=== PATIENT | male | born 1935 | race Caucasian/White ===

== ENCOUNTER 2016-10-28 11:58 | Day surgery (SDC) | payer MEDICARE, OTHER ==
[~2016-10-28 11:58] MED LIST: Acetaminophen TAB* 325 MG PO PRN; Buffered Lidocaine 1% SYRIN* 3 ML/SYR SYRINGE INTRADERM ONE
[2016-10-28] MEDS ORDERED: Phenylephrine 2.5% OPTH.SOL* 2 ML BTL ONE (13:15)
[2016-10-28] MEDS ORDERED: Lidocaine 1% MPF* 2 ML VIAL ONE (13:15)
[2016-10-28] MEDS ORDERED: Povidone Iodine 5% OPTH* 30 ML BTL ONE (13:15)
[2016-10-28] MEDS ORDERED: Tropicamide 1% OPTH.SOL* BTL ONE (13:15)
[2016-10-28] MEDS ORDERED: Flurbiprofen 0.03% OPTH.SOL* 2.5 ML BTL ONE (13:15)
[2016-10-28] MEDS ORDERED: Tetracaine 0.5% OPTH.SOL 4 ML* 1 DROP BTL ONE (13:15)
[2016-10-28] MEDS ORDERED: Cyclopentolate 1% OPTH.SOL* 2 ML BTL ONE (13:15)
[2016-10-28] MEDS ORDERED: Neomycin/Polymy/Dex OPHTH.OIN* 3.5 GM ONE (13:15)
[2016-10-28] MEDS ORDERED: Midazolam* 1 MG/ML 2 ML VIAL (2 MG) ONE (13:18)
[2016-10-28 14:12] VITALS: BP 131/81
--- NOTE | 2016-10-29 01:57 | OP ---
DATE OF OPERATION: 10/28/16 - [facility] DATE OF : 39 SURGEON: Dr. Jim Johnson. GUEST EXPERIENCE SPECIALIST: None. ANESTHESIOLOGIST: Iris Kessler MD ANESTHESIA: Topical with intravenous sedation. PRE-OP DIAGNOSIS: Cataract, right eye. POST-OP DIAGNOSIS: Cataract, right eye. OPERATIVE PROCEDURE: Phacoemulsification and cataract extraction with posterior chamber intraocular lens implant, right eye. COMPLICATIONS: None. BLOOD LOSS: None. DESCRIPTION OF PROCEDURE: The patient was brought to the operating room and received a small amount of intra-venous sedation. A drop of Tetracaine was placed in his right eye. He was prepped and draped in the usual sterile fashion for ophthalmic surgery and attention was directed to the right eye where a speculum was placed. A paracentesis was created at the 11 o'clock position and 0.1 cc of 1 percent preservative-free Lidocaine was injected into the anterior chamber followed by DisCoVisc. The eye was digitally stabilized while a 2.75 mm keratome was used to create a triplanar clear corneal incision at the 9 o'clock position. A continuous curvilinear capsulorrhexis was created with a cystotome and Utrata forceps. BSS on a cannula was used to hydrodissect the lens from the capsule. Phacoemulsification was performed in a divide-and- conquer technique to create four fragments which were removed. Residual cortical material was removed with irrigation and aspiration. DisCoVisc was used to inflate the capsular bag and an AU00T0 19.0 Diopter lens was folded and inserted into the capsular bag. DisCoVisc was removed using irrigation and aspiration. BSS on a cannula was used to hydrate the corneal stroma and seal the wound. At the end of the case the pupil was round and the lens was centered. The eye was of normal pressure and the wound was water tight. The speculum was removed and topical Maxitrol ointment was placed on the surface of the eye. The eye was closed, patched and shielded and the patient was sent to the recovery room in stable condition with post operative instructions and follow-up appointment given. [id number]/CPS #: [id number] MTDD
== END 2016-10-28 14:20 | disposition home or self-care (01) ==
LOC: OREAST 11:58
PROVIDERS: ATTEND Ophthalmology
DX: H25.11 Age-related nuclear cataract, right eye (principal); Z86.718 Personal history of other venous thrombosis and embolism; Z79.01 Long term (current) use of anticoagulants; Z85.46 Personal history of malignant neoplasm of prostate; E03.9 Hypothyroidism, unspecified; Z85.118 Personal history of other malignant neoplasm of bronchus and lung
CPT/HCPCS: A9270-GY; J2250; V2632

== ENCOUNTER 2017-06-19 14:48 | Emergency (ER) | payer MEDICARE, OTHER ==
[2017-06-19] MEDS ORDERED: Meclizine TAB* 12.5 MG PO ONE (15:18)
[2017-06-19 15:52] LABS: Hematocrit 41 % (42-52); Hemoglobin 13.6 g/dl (14.0-18.0); Mean Corpuscular HGB Conc 34 g/dl (31-36); Mean Corpuscular Hemoglobin 31 pg (27-31); Mean Corpuscular Volume 92 fL (80-94); Mean Platelet Volume 9 um3 (7.4-10.4); Red Blood Count 4.38 10^6/ul (4.0-5.4); Red Cell Distribution Width 14 % (10.5-15); White Blood Count 5.7 10^3/ul (3.5-10.8)
--- NOTE | 2017-06-19 15:56 | RAD ---
INDICATION: Vertigo. Secondary malignant neoplasm of the brain COMPARISON: MRI brain April 28, 2017 TECHNIQUE: Noncontrast axial source images were acquired from the skull base to the vertex. FINDINGS: Ventricles/sulci: The ventricles and cisterns are normal in size and configuration for age. There is mild age-related atrophy Brain parenchyma: There is right frontal encephalomalacia, unchanged. There is no acute focal parenchymal finding, evidence of intracranial mass, or intracranial mass effect. Intracranial hemorrhage:None. Extra-axial spaces: There are no abnormal extra axial fluid collections or evidence of extra-axial mass. Calvarium: There is no calvarial fracture or other calvarial abnormality. Scalp: There is no evidence of scalp or extracalvarial soft tissue abnormality. Paranasal sinuses/mastoid: The paranasal sinuses and mastoid air cells are clear. Other: None. IMPRESSION: Right frontal encephalomalacia, unchanged. No acute CT findings
[2017-06-19 16:08] LABS: Albumin 4.3 g/dL (3.2-5.2); BUN/Creatinine Ratio 14.4 (8-20); Calcium 9.3 mg/dL (8.6-10.3); EGFR African American 88.6 (>60); EGFR Non-African American 68.9 (>60); Globulin 2.8 g/dL (2-4); Total Bilirubin 0.8 mg/dL (0.2-1.0); Total Protein 7.1 g/dL (6.4-8.9)
--- NOTE | 2017-06-19 17:20 | RAD ---
INDICATION: Weakness COMPARISON: MRI brain April 28, 2017; CT brain June 19, 2017 TECHNIQUE: sagittal T1 FLAIR, axial diffusion, axial T1 FLAIR, axial T2, axial T2 FLAIR, and SWI images were acquired. FINDINGS: Craniocervical junction: The craniocervical junction appears normal. Ventricles/sulci: The ventricles and cisterns are normal in size and configuration for age. Brain parenchyma: There is again right frontal encephalomalacia with adjacent sclerosis, unchanged there are no acute focal parenchymal abnormalities. There is no evidence of intracranial mass or mass effect. The diffusion weighted images show no evidence of acute ischemia. Intracranial hemorrhage: There is no intracranial hemorrhage. Extra-axial spaces: There are no extra-axial fluid collections or masses. Orbits: There are no MR abnormalities of the orbital structures. Paranasal sinuses/mastoid: There is a mucous retention cyst or polyp in the left maxillary antrum measuring 1.9 cm, unchanged The paranasal sinuses are clear. The mastoid air cells are well aerated.. Vascular: No abnormalities are seen. Other: None IMPRESSION: 1. Stable encephalomalacic change right frontal lobe. 2. No MR findings of restricted diffusion to suggest acute ischemia. 3. Left maxillary antral sinusitis, unchanged
[2017-06-19 18:20] VITALS: BP 132/100
--- NOTE | 2017-06-22 19:48 | ED ---
Rodolfo Qiu Natalie, scribed for Demetrius Cooley MD on 06/19/17 at 1523 . Dizziness - HPI Summary HPI Summary: The pt is a 81 y/o M presenting to the ED c/o dizziness and nausea starting last night and lasted for 2 hours. After waking up this morning, he felt alright , but felt dizzy and nauseous again at 11:00. The dizziness is described as spinning. The pain is aggravated by head movement and is alleviated by lying down. Pt additionally c/o vomiting, congestion, unsteadiness with ambulation. Pt denies headache and tinnitus. He has had 4 similar episodes over the past few months. Pt has hx of noncancerous brain tumor. - History Of Current Complaint Chief Complaint: EDDizziness Stated Complaint: DIZZY Time Seen by Provider: 06/19/17 14:56 Hx Obtained From: Patient Onset/Duration: Still Present, Suddenly - started last night Severity Initially: Moderate Severity Currently: Moderate Character: Room Spinning, Dizzy Aggravating Factor(s): Change In Head Position Alleviating Factor(s): Lying Down Associated Signs And Symptoms: Positive: Nausea, Vomiting, Unsteady Gait, Other : - POSITIVE: congestion; NEGATIVE: headache. Negative: Tinnitus - Allergies/Home Medications Allergies/Adverse Reactions: Allergies Allergy/AdvReac Type Severity Reaction Status Date / Time No Known Allergies Allergy Verified 04/06/17 15:37 PMH/Surg Hx/FS Hx/Imm Hx Previously Healthy: No Endocrine/Hematology History: Reports: Hx Thyroid Disease - hypothyroididm` Denies: Hx Diabetes Cardiovascular History: Denies: Hx Congestive Heart Failure, Hx Hypertension, Hx Pacemaker/ICD Respiratory History: Denies: Other Respiratory Problems/Disorders GI History: Denies: Other GI Disorders History: Reports: Hx Renal Disease, Other Problems/Disorders - one kidney removed Musculoskeletal History: Reports: Hx Arthritis Denies: Hx Osteoporosis Sensory History: Reports: Hx Cataracts - lexii, Hx Contacts or Glasses, Hx Hearing Aid, Hx Hearing Problem Opthamlomology History: Reports: Hx Cataracts - lexii, Hx Contacts or Glasses Neurological History: Reports: Other Neuro Impairments/Disorders - neuropathy Psychiatric History: Denies: Hx Panic Disorder - Cancer History Cancer Type, 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 [place]- AND Rt PARTIAL NEPHRECTOMY. LUNG SURGERY AND SPINAL SURGERY W/ RODS IN [facility]-. KERATOSIS REMOVED FROM FOREHEAD. appendectomy as child -. [facility] [place] BRAIN TUMOR REMOVAL, AUG 21, 2015. BILATERAL CATARACT SURGERY 11/2016. 2 LAMINECTOMYS IN TSP. GAMMA KNIFE RADIATION -09/25/15 Hx Anesthesia Reactions: No Infectious Disease History: No Infectious Disease History: Denies: Traveled Outside the [place] in Last 30 Days - Family History Known Family History: Negative: Cardiac Disease, Hypertension, Diabetes - Social History Alcohol Use: None Substance Use Type: Reports: None Smoking Status (MU): Never Smoked Tobacco Review of Systems Negative: Other - tinnitus Positive: Vomiting, Nausea Positive: Other - unsteady gait Neurological: Other - dizziness Negative: Headache All Other Systems Reviewed And Are Negative: Yes Physical Exam - Summary Physical Exam Summary: Appearance: The patient is well-nourished in no acute distress and in no acute pain. Skin: The skin is warm and dry and skin color reflects adequate perfusion. HEENT: The head is normocephalic and atraumatic. The patient has horizontal nystagmus with fast component to left that doesn't fatigue. The conjunctivae are clear and without drainage. Nares are patent and without drainage. Mouth reveals moist mucous membranes and the throat is without erythema and exudate. The external ears are intact. The ear canals are patent and without drainage. The tympanic membranes are intact. Neck: The neck is supple with full range of motion and non-tender. There are no carotid bruits. There is no neck vein distension. Respiratory: Chest is non-tender. Lungs are clear to auscultation and breath sounds are symmetrical and equal. Cardiovascular: Heart is regular rate and rhythm. There is no murmur or rub auscultated. There is no peripheral edema and pulses are symmetrical and equal. Abdomen: The abdomen is soft and non-tender. There are normal bowel sounds heard in all four quadrants and there is no organomegaly palpated. Musculoskeletal: There is no back tenderness noted. Extremities are non-tender with full range of motion. There is good capillary refill. There is no peripheral edema or calf tenderness elicited. Neurological: Patient is alert and oriented to person, place and time. The patient has symmetrical motor strength in all four extremities. Cranial nerves are grossly intact. Deep tendon reflexes are symmetrical and equal in all four extremities. Psychiatric: The patient has an appropriate affect and does not exhibit any anxiety or depression. Triage Information Reviewed: Yes Vital Signs On Initial Exam: Initial Vitals Temp Pulse Resp BP Pulse Ox 96.5 F 82 20 180/95 98 06/19/17 14:49 06/19/17 14:49 06/19/17 14:49 06/19/17 14:49 06/19/17 14:49 Vital Signs Reviewed: Yes - [place] Coma Scale Coma Scale Total: 15 Diagnostics - Vital Signs Vital Signs Temp Pulse Resp BP Pulse Ox 06/19/17 15:08 67 98 06/19/17 15:06 142/109 06/19/17 14:49 96.5 F 82 20 180/95 98 - Laboratory Lab Results: Lab Results 06/19/17 06/19/17 06/19/17 Range/Units 15:35 15:35 15:35 WBC 5.7 (3.5-10.8) 10^3/ul RBC 4.38 (4.0-5.4) 10^6/ul Hgb 13.6 L (14.0-18.0) g/dl Hct 41 L (42-52) % MCV 92 (80-94) fL MCH 31 (27-31) pg MCHC 34 (31-36) g/dl RDW 14 (10.5-15) % Plt Count 117 L (150-450) 10^3/ul MPV 9 (7.4-10.4) um3 Neut % (Auto) 86.8 H (38-83) % Lymph % (Auto) 10.0 L (25-47) % Hand % (Auto) 2.7 (1-9) % Eos % (Auto) 0.2 (0-6) % Baso % (Auto) 0.3 (0-2) % Absolute Neuts (auto) 4.9 (1.5-7.7) 10^3/ul Absolute Lymphs (auto) 0.6 L (1.0-4.8) 10^3/ul Absolute Monos (auto) 0.2 (0-0.8) 10^3/ul Absolute Eos (auto) 0 (0-0.6) 10^3/ul Absolute Basos (auto) 0 (0-0.2) 10^3/ul Absolute Nucleated RBC 0 10^3/ul Nucleated RBC % 0.1 INR (Anticoag Therapy) (0.77-1.02) Sodium 136 (133-145) mmol/L Potassium 4.0 (3.5-5.0) mmol/L Chloride 103 (101-111) mmol/L Carbon Dioxide 26 (22-32) mmol/L Anion Gap 7 (2-11) mmol/L BUN 15 (6-24) mg/dL Creatinine 1.04 (0.67-1.17) mg/dL Est GFR ( Amer) 88.6 (>60) Est GFR (Non-Af Amer) 68.9 (>60) BUN/Creatinine Ratio 14.4 (8-20) Glucose 127 H (70-100) mg/dL Lactic Acid 1.6 (0.5-2.0) mmol/L Calcium 9.3 (8.6-10.3) mg/dL Total Bilirubin 0.80 (0.2-1.0) mg/dL AST 16 (13-39) U/L ALT 14 (7-52) U/L Alkaline Phosphatase 51 (34-104) U/L Troponin I 0.00 (<0.04) ng/mL Total Protein 7.1 (6.4-8.9) g/dL Albumin 4.3 (3.2-5.2) g/dL Globulin 2.8 (2-4) g/dL Albumin/Globulin Ratio 1.5 (1-3) 06/19/ Range/Units 15:35 WBC (3.5-10.8) 10^3/ul RBC (4.0-5.4) 10^6/ul Hgb (14.0-18.0) g/dl Hct (42-52) % MCV (80-94) fL MCH (27-31) pg MCHC (31-36) g/dl RDW (10.5-15) % Plt Count (150-450) 10^3/ul MPV (7.4-10.4) um3 Neut % (Auto) (38-83) % Lymph % (Auto) (25-47) % Hand % (Auto) (1-9) % Eos % (Auto) (0-6) % Baso % (Auto) (0-2) % Absolute Neuts (auto) (1.5-7.7) 10^3/ul Absolute Lymphs (auto) (1.0-4.8) 10^3/ul Absolute Monos (auto) (0-0.8) 10^3/ul Absolute Eos (auto) (0-0.6) 10^3/ul Absolute Basos (auto) (0-0.2) 10^3/ul Absolute Nucleated RBC 10^3/ul Nucleated RBC % INR (Anticoag Therapy) 0.96 (0.77-1.02) Sodium (133-145) mmol/L Potassium (3.5-5.0) mmol/L Chloride (101-111) mmol/L Carbon Dioxide (22-32) mmol/L Anion Gap (2-11) mmol/L BUN (6-24) mg/dL Creatinine (0.67-1.17) mg/dL Est GFR ( Amer) (>60) Est GFR (Non-Af Amer) (>60) BUN/Creatinine Ratio (8-20) Glucose (70-100) mg/dL Lactic Acid (0.5-2.0) mmol/L Calcium (8.6-10.3) mg/dL Total Bilirubin (0.2-1.0) mg/dL AST (13-39) U/L ALT (7-52) U/L Alkaline Phosphatase (34-104) U/L Troponin I (<0.04) ng/mL Total Protein (6.4-8.9) g/dL Albumin (3.2-5.2) g/dL Globulin (2-4) g/dL Albumin/Globulin Ratio (1-3) Result Diagrams: 06/19/17 15:35 06/19/17 15:35 Lab Statement: Any lab studies that have been ordered have been reviewed, and results considered in the medical decision making process. - Radiology Brain CT Xray Interpretation: No Acute Changes - Right frontal encephalomalacia, unchanged. No acute CT findings. ED physician has reviewed this report. Radiology Interpretation Completed By: Radiologist Brain MRI Xray Interpretation: No Acute Changes - 1. Stable encephalomalacic change right frontal lobe. 2. No MR findings of restricted diffusion to suggest acute ischemia. 3. Left maxillary antral sinusitis, unchanged ED physician has reviewed this report. Radiology Interpretation Completed By: Radiologist - EKG 15:23 Cardiac Rate: NL EKG Rhythm: Sinus Rhythm - 71 BPM EKG Interpretation: Nml axis. Nml intervals. No ischemic changes. Dizzy Course/Dx - Course Course Of Treatment: Mr. Antonio has had a few episodes of spinning dizziness. It is aggravaqted by movement and disappears when still within 15 seconds or so. He has some nonfatiguing horizontal nystagmus with the fast component to the left. His ears look fine. CT and MR were negative and this is presumed peripheral veertigo. We discussed the Triston maneuvers and symptomatic treatment. He did get relief here with meclizine. - Diagnoses Provider Diagnoses: Peripheral vertigo Discharge - Discharge Plan Condition: Stable Disposition: HOME Prescriptions: Meclizine TAB* [Antivert 12.5 TAB*] 25 mg PO TID PRN #20 tab PRN Reason: Dizziness Ondansetron ODT TAB* [Zofran Odt TAB*] 4 mg PO Q6H PRN #20 tab.odt PRN Reason: Nausea/Vomiting Patient Education Materials: Vertigo (ED) Referrals: Candy Gandhi MD [Primary Care Provider] - 3 Days Additional Instructions: Follow up with your primary care provider in 3-5 days. Take Antivert as prescribed. Return to the Emergency Department if any new or worsening symptoms occur. The documentation as recorded by the Rodolfo dow Natalie accurately reflects the service I personally performed and the decisions made by , Demetrius Cooley MD.
== END 2017-06-19 18:18 | disposition home or self-care (01) ==
LOC: ED 14:48
DX: H81.399 Other peripheral vertigo, unspecified ear (principal); E03.9 Hypothyroidism, unspecified
CPT/HCPCS: 36415; 70450; 70551; 80053; 83605; 84484; 85025; 85610; 93005; 99282; A9270-GY

== ENCOUNTER 2017-07-18 16:00 | Observation (INO) | payer MEDICARE, OTHER ==
[2017-07-18] MEDS ORDERED: Acetaminophen TAB* 325 MG PO ONE (17:57)
[2017-07-18 18:15] LABS: Hematocrit 42 % (42-52); Hemoglobin 14.4 g/dl (14.0-18.0); Mean Corpuscular HGB Conc 35 g/dl (31-36); Mean Corpuscular Hemoglobin 32 pg (27-31); Mean Corpuscular Volume 92 fL (80-94); Mean Platelet Volume 9 um3 (7.4-10.4); Platelet Count 132 10^3/ul (150-450); Red Blood Count 4.53 10^6/ul (4.0-5.4); Red Cell Distribution Width 14 % (10.5-15); White Blood Count 7.2 10^3/ul (3.5-10.8)
[2017-07-18 18:27] LABS: EGFR Non-African American 32.6 (>60)
[2017-07-18 18:34] LABS: INR 1.21 (0.77-1.02)
[2017-07-18 18:49] LABS: ABS Basophils 0 10^3/ul (0-0.2); ABS Eosinophils 0 10^3/ul (0-0.6); ABS Monocytes 0.3 10^3/ul (0-0.8); ABS Neutrophils 5.5 10^3/ul (1.5-7.7); ABS Nucleated RBC 0 10^3/ul; Eosinophil % 0.3 % (0-6); Lymphocyte % 14.7 % (25-47); Nucleated Red Blood Cells % 0.1
--- NOTE | 2017-07-18 19:11 | RAD ---
CLINICAL HISTORY: Right flank pain COMPARISON: May 27, 2016, August 18, 2015 TECHNIQUE: Multiple contiguous axial CT scans were obtained of the abdomen and pelvis, without intravenous contrast enhancement. Coronal and sagittal multiplanar reformations are submitted for review. Oral contrast was not administered. FINDINGS: The study is limited by the lack of intravenous contrast. This limits evaluation of the solid organs and vasculature. LUNG BASES: The lung bases are clear. LIVER: The liver is normal in shape, size, contour, and attenuation. BILE DUCTS: There is no intrahepatic or extrahepatic biliary dilatation. GALLBLADDER: The gallbladder is normal, without pericholecystic inflammatory change. PANCREAS: The pancreas is normal, without mass or ductal dilatation. SPLEEN: Normal in size and appearance. UPPER GI TRACT: Evaluation of the gastrointestinal tract is limited by incomplete gastric distention. The upper GI tract is unremarkable. SMALL BOWEL AND MESENTERY: The small bowel is normal in contour, course, and caliber. There is no obstruction or dilatation. COLON: There are multiple diverticula of the sigmoid colon. There is no pericolonic inflammatory change. The appendix is not visualized. ADRENALS: There is diffuse enlargement of the right adrenal gland suggestive of nodular hyperplasia. Left adrenal gland is not clearly visualized. KIDNEYS: The patient is status post left nephrectomy. On the right, there is no significant hydronephrosis or nephrolithiasis. There is a stable exophytic lesion of the upper pole of right kidney, likely a dense cyst. BLADDER: The bladder is smooth in contour. PELVIC ORGANS: The pelvic organs are not visualized. AORTA: The aorta is normal. IVC: Unremarkable LYMPH NODES: There is no lymphadenopathy by size criteria. ABDOMINAL WALL: There is no evidence for abdominal wall hernia. BONES AND SOFT TISSUES: Degenerative changes are noted. OTHER: None IMPRESSION: 1. STATUS POST LEFT NEPHRECTOMY. 2. THERE IS NO APPRECIABLE HYDRONEPHROSIS OR NEPHROLITHIASIS. 3. DIVERTICULOSIS.
[2017-07-18 19:53] LABS: Urine Appearance Clear; Urine Blood 3+ (Negative); Urine Color Straw; Urine Ketones Negative (Negative); Urine Protein Negative (Negative); Urine Specific Gravity 1.005 (1.010-1.030); Urine Urobilinogen Negative (Negative)
[2017-07-18] MEDS ORDERED: NS 0.9% 1000 ML* 1,000 ML IV ONE (23:59)
--- NOTE | 2017-07-19 01:03 | ED ---
Pennie Qiu Rebecca, scribed for Enrique Radford MD on 07/19/17 at 0000 . 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 He has no associated symptoms and was evaluated by Dr. Cooley during which blood work and a CT was done. The CT revealed no acute pathology and no renal stones. He additionally has microscopic hematuria. Upon my evaluation, the pt presented with superficial dermatomal tenderness on the right-side of the abdomen which may present as initial signs and symptoms of shingles, without a rash. Due to the increase in creatinine, the patient will be admitted for hydration and evaluation by a derrick man. Re-Evaluation - Re-Evaluation First Eval Re-Evaluation Time: 23:45 Comment: Evaluated the pt, revealing superficial dermatomal tenderness on the right side of the abdomen. Discussed admission plan. 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 He has no associated symptoms and was evaluated by Dr. Cooley during which blood work and a CT was done. The CT revealed no acute pathology and no renal stones. He additionally has microscopic hematuria. Upon my evaluation, the pt presented with superficial dermatomal tenderness on the right-side of the abdomen which may present as initial signs and symptoms of shingles, without a rash. Due to the increase in creatinine, the patient will be admitted for hydration and evaluation by a derrick man. Discussed care of pt with Dr. Knott who accepts pt for admission. Pt's condition is stable and he will be admitted. - Diagnoses Provider Diagnoses: Acute renal insufficiency - Provider Notifications Discussed Care Of Patient With: Cooper Knott Time Discussed With Above Provider: 23:55 Instructed by Provider To: Other - Accepts pt for admission. The documentation as recorded by the Pennie dow Rebecca accurately reflects the service I personally performed and the decisions made by me, Enrique Radford MD.
[2017-07-19] MEDS ORDERED: Acetaminophen TAB* 325 MG PO ONE (01:49)
[2017-07-19] MEDS ORDERED: CMCS: Melatonin (NF) 3 MG TAB PO PRN (01:54)
[2017-07-19] MEDS ORDERED: Ondansetron INJ* 2 MG/ML VIAL IV PRN (01:54)
[2017-07-19] MEDS ORDERED: NS 0.9% 1000 ML* 1,000 ML IV SCH (02:00)
--- NOTE | 2017-07-19 04:21 | HP ---
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 He has had a few days of dark urine and decreased urine output which has improved over the last 2 days, but denies F /C, sweats, N/V, B/U/F of urine, hematuria, & diarrhea. There has been no chest pain, SOB, palpitations, cough, congestion, or other issues. CT abd/pel WO was read as no hydronephrosis or nephrolithiasis. Labs were notable for BUN/cre 27/ 1.99 (baseline 16/1.0) & UA for 3+ blood. He will be admitted for IV rehydration and monitoring of renal function as well as observation of his R flank pain of uncertain etiology. PMedHx L clear cell renal CA 1993 s/p radical nephrectomy R clear cell renal CA 1996 s/p partial nephrectomy R lung clear cell renal CA 1998 metastasis s/p wedge resection T1 & T2 clear cell renal CA spinal metastases 1999 s/p excision mediastinal lymph node clear cell renal CA metastases 2010 s/p radioTX cerebral clear cell renal CA metastasis 2016 s/p craniotomy excision & radioTX prostate CA samantha 9 locally recurrent on Leupron LLE DVT on rivaroxaban hypothyroidism HTN gout Ambulatory Orders Allopurinol TAB* [Zyloprim TAB*] 50 mg PO DAILY 08/16/15 Leuprolide 11.25 MG KIT [Lupron Depot*] mg IM ONCE 08/16/15 Levothyroxine TAB* [Synthroid TAB*] 88 mcg PO DAILY 08/16/15 Cholecalciferol [Vitamin D] 1,000 unit PO DAILY 10/21/16 Cyanocobalamin TAB* [Vitamin B12 TAB*] 1,000 mcg PO DAILY 10/21/16 Rivaroxaban TAB(*) [Xarelto 20 mg] 20 mg PO DAILY 10/21/16 Allergies No Known Allergies Allergy (Verified 04/06/17 15:37) PSurgHx L radical nephrectomy R partial nephrectomy R lung wedge resection T-spine metastases resections craniotomy w/ cerebral metastasis resection appendectomy tonsillectomy OU cataract extractions SocHx: no tobacco, rare alcohol, no recreational drugs; lives with his ; 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 FamHx: Mother: ovarian CA; Father: Hodgkin's lymphoma; Brother: prostate CA ROS: as above, otherwise reviewed and all were negative vitals: Vital Signs Temp 36.6 C 07/19/17 02:59 Pulse 70 07/19/17 02:59 Resp 20 07/19/17 02:59 BP 159/86 07/19/17 02:59 Pulse Ox 99 07/19/17 02:59 Intake & Output 07/18/17 07/18/17 07/19/17 11:59 23:59 11:59 Intake Total 1000 Balance 1000 Weight 76.204 kg 77.201 kg Intake: IV Fluids 1000 Other: Estimated Void Large # Voids 1 Constitutional: NAD, normally developed, well-nourished elderly white male HEENM: atraumatic; sclera/conjunctiva: anicteric/clear; hearing: clinically mildly decreased; oropharynx: clear, mucosa tacky Neck: soft tissue: non-tender; thyroid: normal Pulmonary: clear to auscultation bilaterally, good aeration, no accessory muscle use CV: RR/RR, normal S1S2, no carotid bruit, no jugular venous distention, 2+ B DP/ PT, no edema Abdominal: soft, non-distended, non-tender, no rebound/guarding/rigidity, normoactive bowel sounds, no hepatosplenomegaly or masses, mild R costovertebral angle tenderness Musculoskeletal: general: grossly intact, no tenderness w/ palpation Integumental: normal appearance and texture of exposed skin Psychiatric orientation: AA&O to PPS affect: calm mood: cooperative, pleasant eye contact: good content: reliable responses: timely insight: good Testing: Lab Results 07/18/17 07/18/17 07/18/17 Range/Units 17:57 17:57 17:57 WBC 7.2 (3.5-10.8) 10^3/ul RBC 4.53 (4.0-5.4) 10^6/ul Hgb 14.4 (14.0-18.0) g/dl Hct 42 (42-52) % MCV 92 (80-94) fL MCH 32 H (27-31) pg MCHC 35 (31-36) g/dl RDW 14 (10.5-15) % Plt Count 132 L (150-450) 10^3/ul MPV 9 (7.4-10.4) um3 Neut % (Auto) 80.0 (38-83) % Lymph % (Auto) 14.7 L (25-47) % [place] % (Auto) 4.7 (1-9) % Eos % (Auto) 0.3 (0-6) % Baso % (Auto) 0.3 (0-2) % Absolute Neuts (auto) 5.5 (1.5-7.7) 10^3/ul Absolute Lymphs (auto) 1.0 (1.0-4.8) 10^3/ul Absolute Monos (auto) 0.3 (0-0.8) 10^3/ul Absolute Eos (auto) 0 (0-0.6) 10^3/ul Absolute Basos (auto) 0 (0-0.2) 10^3/ul Absolute Nucleated RBC 0 10^3/ul Nucleated RBC % 0.1 INR (Anticoag Therapy) (0.77-1.02) Sodium 135 (133-145) mmol/L Potassium 4.9 (3.5-5.0) mmol/L Chloride 103 (101-111) mmol/L Carbon Dioxide 26 (22-32) mmol/L Anion Gap 6 (2-11) mmol/L BUN 27 H (6-24) mg/dL Creatinine 1.99 H (0.67-1.17) mg/dL Est GFR ( Amer) 41.9 (>60) Est GFR (Non-Af Amer) 32.6 (>60) BUN/Creatinine Ratio 13.6 (8-20) Glucose 108 H (70-100) mg/dL Lactic Acid 1.1 (0.5-2.0) mmol/L Calcium 9.6 (8.6-10.3) mg/dL Total Bilirubin 0.80 (0.2-1.0) mg/dL AST 14 (13-39) U/L ALT 8 (7-52) U/L Alkaline Phosphatase 50 (34-104) U/L C-Reactive Protein 2.82 (< 5.00) mg/L Total Protein 6.6 (6.4-8.9) g/dL Albumin 4.0 (3.2-5.2) g/dL Globulin 2.6 (2-4) g/dL Albumin/Globulin Ratio 1.5 (1-3) Lipase 22 (11.0-82.0) U/L Urine Color Urine Appearance Urine pH (5-9) Ur Specific [place] (1.010-1.030) Urine Protein (Negative) Urine Ketones (Negative) Urine Blood (Negative) Urine Nitrate (Negative) Urine Bilirubin (Negative) Urine Urobilinogen (Negative) Ur Leukocyte Esterase (Negative) Urine WBC (Auto) (Absent) Urine RBC (Auto) (Absent) Urine Bacteria (Absent) Urine Glucose (Negative) 07/18/17 07/18/17 Range/Units 17:57 19:35 WBC (3.5-10.8) 10^3/ul RBC (4.0-5.4) 10^6/ul Hgb (14.0-18.0) g/dl Hct (42-52) % MCV (80-94) fL MCH (27-31) pg MCHC (31-36) g/dl RDW (10.5-15) % Plt Count (150-450) 10^3/ul MPV (7.4-10.4) um3 Neut % (Auto) (38-83) % Lymph % (Auto) (25-47) % [place] % (Auto) (1-9) % Eos % (Auto) (0-6) % Baso % (Auto) (0-2) % Absolute Neuts (auto) (1.5-7.7) 10^3/ul Absolute Lymphs (auto) (1.0-4.8) 10^3/ul Absolute Monos (auto) (0-0.8) 10^3/ul Absolute Eos (auto) (0-0.6) 10^3/ul Absolute Basos (auto) (0-0.2) 10^3/ul Absolute Nucleated RBC 10^3/ul Nucleated RBC % INR (Anticoag Therapy) 1.21 H (0.77-1.02) Sodium (133-145) mmol/L Potassium (3.5-5.0) mmol/L Chloride (101-111) mmol/L Carbon Dioxide (22-32) mmol/L Anion Gap (2-11) mmol/L BUN (6-24) mg/dL Creatinine (0.67-1.17) mg/dL Est GFR ( Amer) (>60) Est GFR (Non-Af Amer) (>60) BUN/Creatinine Ratio (8-20) Glucose (70-100) mg/dL Lactic Acid (0.5-2.0) mmol/L Calcium (8.6-10.3) mg/dL Total Bilirubin (0.2-1.0) mg/dL AST (13-39) U/L ALT (7-52) U/L Alkaline Phosphatase (34-104) U/L C-Reactive Protein (< 5.00) mg/L Total Protein (6.4-8.9) g/dL Albumin (3.2-5.2) g/dL Globulin (2-4) g/dL Albumin/Globulin Ratio (1-3) Lipase (11.0-82.0) U/L Urine Color Straw Urine Appearance Clear Urine pH 6.0 (5-9) Ur Specific [place] 1.005 L (1.010-1.030) Urine Protein Negative (Negative) Urine Ketones Negative (Negative) Urine Blood 3+ H (Negative) Urine Nitrate Negative (Negative) Urine Bilirubin Negative (Negative) Urine Urobilinogen Negative (Negative) Ur Leukocyte Esterase Negative (Negative) Urine WBC (Auto) Trace(0-5/hpf) (Absent) Urine RBC (Auto) Trace(0-2/hpf) (Absent) Urine Bacteria Absent (Absent) Urine Glucose Negative (Negative) CT abd/pel WO, personally reviewed: IMPRESSION: 1. STATUS POST LEFT NEPHRECTOMY. 2. THERE IS NO APPRECIABLE HYDRONEPHROSIS OR NEPHROLITHIASIS. 3. DIVERTICULOSIS. Impression: 81M HX L nephrectomy & R partial nephrectomy presents with 3+ hematuria, R flank pain, an MARIE, & CT abd/pel WO negative for hydronephrosis per radiology DIAGNOSIS & PLAN Primary MARIE : IVFs, trend R flank pain, ? etiology : clinical picture is certainly consistent with renal stone, but CT read as negative : hydrate overnight & check renal US in AM : pain control Secondary multi-metastatic clear cell renal CA & prostate CA : continue outpatient surveillance hypothyroidism : continue levothyroxine HTN : not on medication, monitor HX LLE DVT : continue rivaroxaban HX gout : continue allopurinol for now : given tenuous renal situation, consider changing allopurinol to febuxostat as it is potentially less nephrotoxic Admission Rational: observation for MARIE & R flank pain in patient with <1 kidney DVTp: rivaroxaban Code Status: full HCP:
[2017-07-19 05:28] LABS: Hematocrit 38 % (42-52); Hemoglobin 12.7 g/dl (14.0-18.0); Mean Corpuscular HGB Conc 34 g/dl (31-36); Mean Corpuscular Hemoglobin 31 pg (27-31); Mean Corpuscular Volume 92 fL (80-94); Mean Platelet Volume 9 um3 (7.4-10.4); Platelet Count 111 10^3/ul (150-450); Red Blood Count 4.08 10^6/ul (4.0-5.4); Red Cell Distribution Width 14 % (10.5-15); White Blood Count 5.4 10^3/ul (3.5-10.8)
[2017-07-19 05:48] LABS: EGFR Non-African American 55.2 (>60)
[2017-07-19] MEDS ORDERED: Levothyroxine TAB* 88 MCG TAB PO SCH (06:00)
[2017-07-19] MEDS ORDERED: Omeprazole CAP* 20 MG PO SCH (06:00)
[2017-07-19] MEDS ORDERED: Acetaminophen TAB* 325 MG PO PRN (08:00)
[2017-07-19] MEDS ORDERED: Allopurinol TAB* 100 MG PO SCH (09:00)
[2017-07-19] MEDS ORDERED: Docusate CAP* 100 MG PO SCH (09:00)
[2017-07-19 11:15] VITALS: BP 96/54
--- NOTE | 2017-07-19 13:01 | RAD ---
HISTORY: Right flank pain, acute renal insufficiency, status post left colectomy and partial right defect may COMPARISONS: None TECHNIQUE: Multiple transverse and longitudinal ultrasound images were obtained of the right kidney using grayscale and color Doppler imaging. FINDINGS: RIGHT KIDNEY: The right kidney is normal in shape, size, contour, and echogenicity. There is no hydronephrosis or nephrolithiasis. The right kidney measures 12.3 x 6.7 x 5.7 cm. LEFT KIDNEY: No images are submitted of the left kidney. The left renal fossa is clear. BLADDER: No images are submitted of the bladder. AORTA AND IVC: No images are submitted of the vasculature. RETROPERITONEUM: Unremarkable. OTHER: None. IMPRESSION: NO RIGHT HYDRONEPHROSIS OR NEPHROLITHIASIS.
--- NOTE | 2017-07-19 14:31 | ED ---
Priti Qiu Julia, scribed for Demetrius Cooley MD on 07/18/17 at 1754 . Abdominal Pain/Male - HPI Summary HPI Summary: This patient is a 81 year old M presenting [place] [facility] accompanied by_ with a chief complaint of sharp intermittent lateral R abdominal pain since yesterday morning. Patient reports dehydration. Patient denies dysuria. The patient rates the pain 7/10 in severity. Symptoms aggravated by tight clothing. Symptoms alleviated by nothing. Patient has kidney CA and reports that recent CT scans are not concerning. - History of Current Complaint Chief Complaint: EDFlankPain Stated Complaint: RT SIDE PAIN Time Seen by Provider: 07/18/17 17:36 Hx Obtained From: Patient Onset/Duration: Lasting Days Timing: Intermittent Pain Intensity: 7 Pain Scale Used: 0-10 Numeric Location: Discrete At: RLQ - lateral Character: Sharp Aggravating Factor(s): Other: - tight clothing Alleviating Factor(s): Nothing Associated Signs And Symptoms: Positive: Other - dehydration - Allergies/Home Medications Allergies/Adverse Reactions: Allergies Allergy/AdvReac Type Severity Reaction Status Date / Time No Known Allergies Allergy Verified 04/06/17 15:37 PMH/Surg Hx/FS Hx/Imm Hx Endocrine/Hematology History: Reports: Hx Thyroid Disease - hypothyroididm` Denies: Hx Diabetes Cardiovascular History: Denies: Hx Congestive Heart Failure, Hx Hypertension, Hx Pacemaker/ICD Respiratory History: Denies: Other Respiratory Problems/Disorders GI History: Denies: Other GI Disorders History: Reports: Hx Renal Disease, Other Problems/Disorders - one kidney removed Musculoskeletal History: Reports: Hx Arthritis Denies: Hx Osteoporosis Sensory History: Reports: Hx Cataracts - lexii, Hx Contacts or Glasses, Hx Hearing Aid, Hx Hearing Problem Opthamlomology History: Reports: Hx Cataracts - lexii, Hx Contacts or Glasses Neurological History: Reports: Other Neuro Impairments/Disorders - neuropathy Psychiatric History: Denies: Hx Panic Disorder - Cancer History Cancer Type, Location and Year: PROSTATE &. KIDNEY (PRIMARY). METS TO BRAIN - CRANIOTOMY - 08/21/15 AND GAMMA KNIFE 09/25/15 Hx Chemotherapy: Yes Hx Radiation Therapy: Yes - Surgical History Surgery Procedure, Year, and Place: [email or web address] AND Rt PARTIAL NEPHRECTOMY. LUNG SURGERY AND SPINAL SURGERY W/ RODS IN [facility]-. KERATOSIS REMOVED FROM FOREHEAD. appendectomy as child -. [facility] [place]OV[place], AUG 21, 2015. BILATERAL CATARACT SURGERY 11/2016. 2 LAMINECTOMYS IN [place]. GAMMA KNIFE RADIATION -09/25/15 Hx Anesthesia Reactions: No Infectious Disease History: No Infectious Disease History: Denies: Traveled Outside the [place] in Last 30 Days - Family History Known Family History: Negative: Cardiac Disease, Hypertension, Diabetes - Social History Alcohol Use: Rare Substance Use Type: Reports: None Smoking Status (MU): Never Smoked Tobacco Review of Systems Positive: Other - dehydration Gastrointestinal: Other Positive: Abdominal Pain - R lateral Negative: dysuria All Other Systems Reviewed And Are Negative: Yes Physical Exam - Summary Physical Exam Summary: Appearance: The patient is well-nourished in no acute distress and in no acute pain. Skin: The skin is warm and dry and skin color reflects adequate perfusion. HEENT: The head is normocephalic and atraumatic. The pupils are equal and reactive. The conjunctivae are clear and without drainage. Nares are patent and without drainage. Mouth reveals moist mucous membranes and the throat is without erythema and exudate. The external ears are intact. The ear canals are patent and without drainage. The tympanic membranes are intact. Neck: the neck is supple with full range of motion and non-tender. There are no carotid bruits. There is no neck vein distension. Respiratory: Chest is non-tender. Lungs are clear to auscultation and breath sounds are symmetrical and equal. Cardiovascular: Heart is regular rate and rhythm. There is no murmur or rub auscultated. There is no peripheral edema and pulses are symmetrical and equal. Abdomen: The abdomen is soft with mild tenderness to R lateral abdomen and slightly to R flank. There are normal bowel sounds heard in all four quadrants and there is no organomegaly palpated. Musculoskeletal: There is no back tenderness noted. Extremities are non-tender with full range of motion. There is good capillary refill. There is no peripheral edema or calf tenderness elicited. Neurological: Patient is alert and oriented to person, place and time. The patient has symmetrical motor strength in all four extremities. Cranial nerves are grossly intact. Deep tendon reflexes are symmetrical and equal in all four extremities. Psychiatric: The patient has an appropriate affect and does not exhibit any anxiety or depression. Triage Information Reviewed: Yes Vital Signs On Initial Exam: Initial Vitals Temp Pulse Resp BP Pulse Ox 97.4 F 74 15 161/85 99 07/18/17 16:08 07/18/17 16:08 07/18/17 16:08 07/18/17 16:08 07/18/17 16:08 Vital Signs Reviewed: Yes - Jessica Coma Scale Coma Scale Total: 15 Diagnostics - Vital Signs Vital Signs Temp Pulse Resp BP Pulse Ox 07/18/17 16:08 97.4 F 74 15 161/85 99 - Laboratory Lab Results: Lab Results 07/18/17 07/18/17 07/18/17 Range/Units 17:57 17:57 17:57 WBC 7.2 (3.5-10.8) 10^3/ul RBC 4.53 (4.0-5.4) 10^6/ul Hgb 14.4 (14.0-18.0) g/dl Hct 42 (42-52) % MCV 92 (80-94) fL MCH 32 H (27-31) pg MCHC 35 (31-36) g/dl RDW 14 (10.5-15) % Plt Count 132 L (150-450) 10^3/ul MPV 9 (7.4-10.4) um3 Neut % (Auto) 80.0 (38-83) % Lymph % (Auto) 14.7 L (25-47) % [place] % (Auto) 4.7 (1-9) % Eos % (Auto) 0.3 (0-6) % Baso % (Auto) 0.3 (0-2) % Absolute Neuts (auto) 5.5 (1.5-7.7) 10^3/ul Absolute Lymphs (auto) 1.0 (1.0-4.8) 10^3/ul Absolute Monos (auto) 0.3 (0-0.8) 10^3/ul Absolute Eos (auto) 0 (0-0.6) 10^3/ul Absolute Basos (auto) 0 (0-0.2) 10^3/ul Absolute Nucleated RBC 0 10^3/ul Nucleated RBC % 0.1 INR (Anticoag Therapy) (0.77-1.02) Sodium 135 (133-145) mmol/L Potassium 4.9 (3.5-5.0) mmol/L Chloride 103 (101-111) mmol/L Carbon Dioxide 26 (22-32) mmol/L Anion Gap 6 (2-11) mmol/L BUN 27 H (6-24) mg/dL Creatinine 1.99 H (0.67-1.17) mg/dL Est GFR ( Amer) 41.9 (>60) Est GFR (Non-Af Amer) 32.6 (>60) BUN/Creatinine Ratio 13.6 (8-20) Glucose 108 H (70-100) mg/dL Lactic Acid 1.1 (0.5-2.0) mmol/L Calcium 9.6 (8.6-10.3) mg/dL Total Bilirubin 0.80 (0.2-1.0) mg/dL AST 14 (13-39) U/L ALT 8 (7-52) U/L Alkaline Phosphatase 50 (34-104) U/L C-Reactive Protein 2.82 (< 5.00) mg/L Total Protein 6.6 (6.4-8.9) g/dL Albumin 4.0 (3.2-5.2) g/dL Globulin 2.6 (2-4) g/dL Albumin/Globulin Ratio 1.5 (1-3) Lipase 22 (11.0-82.0) U/L Urine Color Urine Appearance Urine pH (5-9) Ur Specific [place] (1.010-1.030) Urine Protein (Negative) Urine Ketones (Negative) Urine Blood (Negative) Urine Nitrate (Negative) Urine Bilirubin (Negative) Urine Urobilinogen (Negative) Ur Leukocyte Esterase (Negative) Urine WBC (Auto) (Absent) Urine RBC (Auto) (Absent) Urine Bacteria (Absent) Urine Glucose (Negative) 07/18/17 07/18/17 Range/Units 17:57 19:35 WBC (3.5-10.8) 10^3/ul RBC (4.0-5.4) 10^6/ul Hgb (14.0-18.0) g/dl Hct (42-52) % MCV (80-94) fL MCH (27-31) pg MCHC (31-36) g/dl RDW (10.5-15) % Plt Count (150-450) 10^3/ul MPV (7.4-10.4) um3 Neut % (Auto) (38-83) % Lymph % (Auto) (25-47) % [place] % (Auto) (1-9) % Eos % (Auto) (0-6) % Baso % (Auto) (0-2) % Absolute Neuts (auto) (1.5-7.7) 10^3/ul Absolute Lymphs (auto) (1.0-4.8) 10^3/ul Absolute Monos (auto) (0-0.8) 10^3/ul Absolute Eos (auto) (0-0.6) 10^3/ul Absolute Basos (auto) (0-0.2) 10^3/ul Absolute Nucleated RBC 10^3/ul Nucleated RBC % INR (Anticoag Therapy) 1.21 H (0.77-1.02) Sodium (133-145) mmol/L Potassium (3.5-5.0) mmol/L Chloride (101-111) mmol/L Carbon Dioxide (22-32) mmol/L Anion Gap (2-11) mmol/L BUN (6-24) mg/dL Creatinine (0.67-1.17) mg/dL Est GFR ( Amer) (>60) Est GFR (Non-Af Amer) (>60) BUN/Creatinine Ratio (8-20) Glucose (70-100) mg/dL Lactic Acid (0.5-2.0) mmol/L Calcium (8.6-10.3) mg/dL Total Bilirubin (0.2-1.0) mg/dL AST (13-39) U/L ALT (7-52) U/L Alkaline Phosphatase (34-104) U/L C-Reactive Protein (< 5.00) mg/L Total Protein (6.4-8.9) g/dL Albumin (3.2-5.2) g/dL Globulin (2-4) g/dL Albumin/Globulin Ratio (1-3) Lipase (11.0-82.0) U/L Urine Color Straw Urine Appearance Clear Urine pH 6.0 (5-9) Ur Specific [place] 1.005 L (1.010-1.030) Urine Protein Negative (Negative) Urine Ketones Negative (Negative) Urine Blood 3+ H (Negative) Urine Nitrate Negative (Negative) Urine Bilirubin Negative (Negative) Urine Urobilinogen Negative (Negative) Ur Leukocyte Esterase Negative (Negative) Urine WBC (Auto) Trace(0-5/hpf) (Absent) Urine RBC (Auto) Trace(0-2/hpf) (Absent) Urine Bacteria Absent (Absent) Urine Glucose Negative (Negative) Result Diagrams: 07/19/17 05:09 07/19/17 05:09 Lab Statement: Any lab studies that have been ordered have been reviewed, and results considered in the medical decision making process. - CT A/P CT Interpretation Completed By: Radiologist - 1. STATUS POST LEFT NEPHRECTOMY. 2. THERE IS NO APPRECIABLE HYDRONEPHROSIS OR NEPHROLITHIASIS. 3. DIVERTICULOSIS. ED Physician has reviewed this report. Abdominal Pain Fem Course/Dx - Course Course Of Treatment: Mr. Antonio presented with a story consistent with a kidney stone. He has a history of kidney CA and has only a partial right kidney left. His creatinine approximately doubled in the last few weeks but is still not markedly high. He has a normal CT scan. His pain is unclear. He may have passed a stone. His U/A is still pending and I expect that he will go home if it is normal with close F/U. - Diagnoses Provider Diagnoses: Acute renal insufficiency Discharge - Discharge Plan Condition: Stable Disposition: ADMITTED TO [facility] The documentation as recorded by the Priti dow Julia accurately reflects the service I personally performed and the decisions made by me, Demetrius Cooley MD.
[2017-07-19] MEDS ORDERED: Rivaroxaban TAB(*) 20 MG TAB PO SCH (17:00)
--- NOTE | 2017-07-20 05:41 | DS ---
DISCHARGE SUMMARY: DATE OF ADMISSION: 07/19/17 DATE OF DISCHARGE: 07/19/17 ADMITTING PHYSICIAN: Cooper Knott MD. PRIMARY CARE PHYSICIAN: Candy Gandhi MD. CHIEF COMPLAINT: Right flank pain and darker urine. PRINCIPAL DIAGNOSES: 1. Acute kidney injury. 2. Hematuria. 3. Possible small passed nephrolithiasis, though not observed on imaging studies. 4. History of renal cell carcinoma. HISTORY OF PRESENT ILLNESS AND HOSPITAL COURSE: Mr. Medardo Antonio is a 81-year- old male with PMH of clear cell renal carcinoma, metastatic to the lung (status post wedge resection 1998), spine T1 and T2 (status post excision in 1999), lymph nodes (status post radiation treatment in 2010), status post radical left nephrectomy in 1993 and partial nephrectomy in 1996, brain metastases (status post craniotomy excision and radiation therapy in 2015), prostate cancer Diego 9, locally recurrent, on Lupron, diagnosed in 2004, hypothyroidism, hypertension, gout, who awoke on 07/18/17, on the day of presentation to the emergency room, with sharp, shooting right flank pain, waxed and waned, later it was also described as achy with sharp clusters. He had also noticed a few days of darker urine, decreased urine output, and had no appetite on the day of admission. He denied any chest pain, shortness of breath, palpitations, cough, congestion. Upon presentation to the [facility], he had a CT abdomen and pelvis without contrast, which demonstrated no hydronephrosis or nephrolithiasis. He did have a stable exophytic lesion of the upper pole of the right kidney, likely a dense cyst. His creatinine was noted to be 1.99 up from baseline of around 1.0. He was given IV fluid bolus in the emergency room. This improved to 1.26 by morning of his first day of admission. The patient's pain had resolved after a dose of Tylenol in the emergency room. He had an ultrasound of his right kidney, which did not demonstrate any hydronephrosis or nephrolithiasis, no cyst was commented on, size was 12.3 x 6.7 x 5.7 cm. The patient was discharged with followup with Dr. Jimenez, his local producer director/ oncologist and Dr. Candy Gandhi, his primary care physician, with suspicion that the pain may have been caused by a small passed kidney stone versus pain and hematuria associated with his known history of clear cell renal carcinoma. Of note, the patient was also on Xarelto ever since his craniotomy surgery was complicated by a DVT in his left lower extremity and was recommended to be on lifelong anticoagulation since. DISCHARGE MEDICATIONS: Include: 1. Leuprolide (Lupron) 11.25 mg IM every 6 months. 2. Allopurinol 50 mg p.o. daily. 3. Levothyroxine 88 mcg p.o. daily. 4. Xarelto 20 mg p.o. daily. 5. Cholecalciferol 1000 units p.o. daily. 6. Cyanocobalamin 1000 mcg p.o. daily. DISCHARGE DIET: No restrictions. DISCHARGE ACTIVITY LEVEL: No restrictions. FOLLOWUP: Follow up with Dr. Candy Gandhi within 3 to 5 days of discharge and Dr[address] Garcia Jimenez within 2 weeks of discharge and, as otherwise scheduled, with Dr. Dereje Phillips of [facility] (scheduled in October 2017). TIME SPENT ON DISCHARGE: Thirty-five minutes. [id number]/CPS #: [id number]
== END 2017-07-19 14:10 | disposition home or self-care (01) ==
LOC: ED 16:00 → MED 07-19 01:04
PROVIDERS: ADMIT Hospitalist; ATTEND Internal Medicine
DX: N17.9 Acute kidney failure, unspecified (principal); R31.9 Hematuria, unspecified; R10.9 Unspecified abdominal pain; Z85.528 Personal history of other malignant neoplasm of kidney; E03.9 Hypothyroidism, unspecified; I10 Essential (primary) hypertension; M10.9 Gout, unspecified; Z86.718 Personal history of other venous thrombosis and embolism; Z79.01 Long term (current) use of anticoagulants; Z79.899 Other long term (current) drug therapy; Z85.46 Personal history of malignant neoplasm of prostate
CPT/HCPCS: 36415; 74176; 76775; 80048; 80053; 81003; 81015; 83605; 83690; 85025; 85027; 85610; 86140; 99284; A9270-GY; G0378

== ENCOUNTER 2018-01-15 06:56 | Day surgery (SDC) | payer MEDICARE, OTHER ==
--- NOTE | 2017-12-25 07:40 | HP ---
CC: Dr. Gandhi * HISTORY AND PHYSICAL: DATE OF PLANNED ADMISSION AND SURGERY: 01/15/18 HISTORY OF PRESENT ILLNESS: Mr. Antonio in an 82-year-old white male who is admitted with a right ureteral calculus, status post placement of right ureteral stent for cystoscopy, right ureteroscopy, laser lithotripsy and right ureteral stent exchange. Please refer to my history and physical for his admission dated 12/14/17 for the detailed note. In brief, Mr. 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 He had primary tumors in his right kidney and require several partial right nephrectomies. His right kidney is preserved and he has a normal renal function with a solitary kidney. 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 He was noted to have a 6 mm calculus in the distal third of his right ureter. There was minimal hydronephrosis. Because of the presence of the ureteral calculus and solitary kidney and the fact that the stone has not passed in 6 months, the patient was taken to operating room on 12/14/17 for ureteroscopy and stone extraction. There was significant degree of stiffness of the distal ureter most likely because of the effect of the pelvic radiation therapy for the prostate cancer. At that time, I felt it was not safe to proceed with the ureteroscopy for fear of damaging the ureter and causing ureteral stricture. A right ureteral stent was placed. Postoperative noncontrast CT showed the calculus to be located in the mid right ureter. The patient now is admitted for cystoscopy and attempted right ureteroscopy and laser lithotripsy with right ureteral stent exchange. I expect that the presence of the stent for a whole month would have caused passive dilation of the distal ureter making the ureteroscopy easier and safer to perform. There has not been any changes in his medical condition, his medications or his physical exam. He has no allergies to medications. I discussed the above plans in detail with Mr. Antonio and his and all their questions were answered. [id number]/[facility] #: [id number] [facility]
[~2018-01-15 06:56] MED LIST changes: -Acetaminophen TAB* 325 MG PO PRN; +Buffered Lidocaine 0.9% SYRIN* 5 ML/SYR SYRINGE INTRADERM ONE; -Buffered Lidocaine 1% SYRIN* 3 ML/SYR SYRINGE INTRADERM ONE
[2018-01-15] MEDS ORDERED: cefTRIAXone(*) 1 GM ADVAN/BAG ONE (07:04)
[2018-01-15] MEDS ORDERED: Iohexol 180 (CONTRAST) 10 ML SDV IV ONE (07:36)
[2018-01-15] MEDS ORDERED: fentaNYL* 50 MCG/ML 2 ML VIAL (100 MCG VIAL) ONE (07:49)
[2018-01-15] MEDS ORDERED: Midazolam* 1 MG/ML 2 ML VIAL (2 MG) ONE (07:49)
[2018-01-15] MEDS ORDERED: EPHEDrine (Pressors)* 50 MG/ML VIAL ONE (08:43)
[2018-01-15] MEDS ORDERED: Ondansetron INJ* 2 MG/ML VIAL IV PRN (08:56)
[2018-01-15] MEDS ORDERED: fentaNYL* 50 MCG/ML 2 ML VIAL (100 MCG VIAL) IV PRN (08:56)
[2018-01-15] MEDS ORDERED: DiMENhydriNATE IV* 50 MG/ML VIAL IV PUSH PRN (08:56)
[2018-01-15] MEDS ORDERED: PROCHLORPERAZINE INJ 5 MG/ML 2 ML VIAL IV PRN (08:56)
[2018-01-15] MEDS ORDERED: HYDROcodone/ACETAMIN 5-325 MG* 1 TAB PO PRN (08:56)
[2018-01-15] MEDS ORDERED: Acetaminophen TAB* 325 MG PO PRN (08:56)
[2018-01-15] MEDS ORDERED: Naloxone* 0.4 MG/ML 1 ML VIAL IV PRN (08:56)
[2018-01-15] MEDS ORDERED: Famotidine IV* 10 MG/ML 2 ML (20 mg) ONE (09:03)
[2018-01-15] MEDS ORDERED: Lidocaine 2% PF * 5 ML VIAL ONE (09:03)
[2018-01-15] MEDS ORDERED: Dexamethasone IV* 4 MG/ML 1 ML (4 MG) ONE (09:03)
[2018-01-15] MEDS ORDERED: Propofol* 10 MG/ML 20 ML BTL IV PUSH ONE (09:03)
--- NOTE | 2018-01-15 09:51 | RAD ---
INDICATION: Right ureteral stent exchange COMPARISONS: December 23, 2017 CT TECHNIQUE: Fluoroscopy was provided for a retrograde pyelogram and stent placement. Total fluoroscopy time is: 6 seconds FINDINGS: Contrast is noted within the right renal collecting system. A ureteral stent is noted. IMPRESSION: FLUOROSCOPY WAS PROVIDED FOR A RETROGRADE PYELOGRAM AND STENT PLACEMENT CPT II Codes: G9500
[2018-01-15 11:03] VITALS: BP 131/80
--- NOTE | 2018-01-15 13:07 | OP ---
CC: Dr. Gandhi OPERATIVE REPORT: DATE OF OPERATION: 01/15/18 DATE OF : 39 SURGEON: Gaetano Ayala MD ANESTHESIOLOGIST: Xenia Patiño MD ANESTHESIA: General. PRE-OP DIAGNOSIS: 1. Mid right ureteral calculus (5 mm). 2. Status post placement, right ureteral stent. POST-OP DIAGNOSIS: 1. Mid right ureteral calculus (5 mm). 2. Status post placement, right ureteral stent. OPERATIVE PROCEDURE: 1. Cystoscopy. 2. Right ureteroscopy and extraction of mid right ureteral calculus. 3. Right retrograde pyelography and placement of right ureteral stent (6-Macedonian ). INDICATION FOR PROCEDURE: Mr. Antonio is an 82-year-old white male who has a solitary right kidney and had received radiation therapy to the pelvis for prostate carcinoma. He was noted to have a non-obstructing right ureteral calculus back in June 2017. About 3-1/2 weeks ago, he had attempted ureteroscopy to extract the calculus, but there was significant degree of rigidity of the ureter from the radiation therapy and the ureteroscopy could not be safely pursued. A stent was placed. He is now admitted for ureteroscopy and stone extraction. PATHOLOGY AT CYSTOSCOPY: The penile and bulbar urethrae looked normal. The prostatic urethra measured about 2.5 cm in length and there was only mild prostate obstruction. Examination of the bladder showed the distal limb of the stent from the right ureteral orifice. No other abnormalities were noted. Upon right ureteroscopy, the ureter was slightly dilated from the presence of the stent. There was no difficulty introducing the ureteroscope. A 5-mm calculus was noted in the mid ureter. The calculus had the gross appearance of calcium oxalate stone. Retrograde pyelography showed no hydronephrosis. DESCRIPTION OF PROCEDURE: After successful general anesthesia, the patient was placed in the lithotomy position and was prepped and draped for a cystoscopy. Cystoscopy was performed. The bladder was inspected. The distal limb of the right ureteral stent was pulled out to the level of the urethral meatus. A flexible tip guidewire was then introduced through the lumen of the stent and positioned in the area of the renal pelvis. A size 6.5 semirigid ureteroscope was then introduced inside the bladder. A flexible tip basket was introduced through the port of the ureteroscope and its flexible tip was introduced in the right ureter alongside the guidewire. That allowed the atraumatic introduction of the ureteroscope in the ureter. The ureter yielded easily to the ureteroscopy and the calculus was identified in the mid ureter. The stone was engaged in the basket and was extracted with no trauma to the ureter. Retrograde pyelography was then performed. A 6 Fr Macedonian stent was then placed with the proximal end coiling in the renal pelvis and the distal end coiling inside the bladder. There was good drainage of contrast from the kidney and no extravasation. The patient tolerated the procedure well and left the operating room in good condition. The plan is to leave the stent in place for about 10 days. It will be removed in the office under local anesthesia. [id number]/[facility] #: [id number] MTDD
== END 2018-01-15 11:08 | disposition home or self-care (01) ==
LOC: OR 06:56
PROVIDERS: ATTEND Urology
DX: N20.1 Calculus of ureter (principal); Z85.46 Personal history of malignant neoplasm of prostate; Z85.528 Personal history of other malignant neoplasm of kidney; Z90.5 Acquired absence of kidney; E03.9 Hypothyroidism, unspecified; M10.9 Gout, unspecified
CPT/HCPCS: 74420; 82365; 88300; C1876; J0696; J1100; J2250; J2704; J3010

== ENCOUNTER 2018-01-26 20:55 | Emergency (ER) | payer MEDICARE, OTHER ==
[2018-01-26] MEDS ORDERED: Meclizine TAB* 12.5 MG PO ONE (21:15)
--- NOTE | 2018-01-26 21:17 | ED ---
Dizziness - HPI Summary HPI Summary: This is paloma Black documenting for attending Ga Wilder MD. This patient is a 82 year old M presenting to [facility] accompanied by his with a chief complaint of dizziness since 1100 today. The patient rates the pain 0/10 in severity. Symptoms aggravated by movement of his head. Pt took meclizine at 1200 and 1800 but it did not alleviate sx. Pt has a hx of vertigo and states it feels similar to old episodes. Pt has had kidney stone removal surgery recently. He states in the past he has most left sided vertigo and this is where it is worse today. - History Of Current Complaint Chief Complaint: EDDizziness Stated Complaint: DIZZINESS Time Seen by Provider: 01/26/18 21:04 Hx Obtained From: Patient Onset/Duration: Still Present Timing: Constant Severity Initially: Moderate Severity Currently: Moderate Character: Dizzy Aggravating Factor(s): Change In Head Position Alleviating Factor(s): Nothing Associated Signs And Symptoms: Positive: Negative - fever, Nausea - Allergies/Home Medications Allergies/Adverse Reactions: Allergies Allergy/AdvReac Type Severity Reaction Status Date / Time No Known Allergies Allergy Verified 01/15/18 07:12 PMH/Surg Hx/FS Hx/Imm Hx Endocrine/Hematology History: Reports: Hx Thyroid Disease - hypothyroididm` Denies: Hx Diabetes Cardiovascular History: Denies: Hx Congestive Heart Failure, Hx Hypertension, Hx Pacemaker/ICD, Other Cardiovascular Problems/Disorders Respiratory History: Reports: Other Respiratory Problems/Disorders - metastisis to right lung, wedge resection GI History: Denies: Other GI Disorders History: Reports: Hx Kidney Stones - RIGHT., Hx Renal Disease, Other Problems/Disorders - Right ureteral stent, stone 12/14/17, Prostate cancer- radiation & lupron Musculoskeletal History: Reports: Hx Arthritis, Other Musculoskeletal History - Cancer in spine- 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 KIDNEY (PRIMARY). METS TO BRAIN - CRANIOTOMY - 08/21/15 AND GAMMA KNIFE 09/25/15 Hx Chemotherapy: Yes - lupron, immunotherapy Hx Radiation Therapy: Yes - Surgical History Surgery Procedure, Year, and Place: Lt [email or web address] [email or web address]- AND Rt PARTIAL NEPHRECTOMY. LUNG SURGERY AND SPINAL SURGERY W/ RODS IN [facility]-. KERATOSIS REMOVED FROM FOREHEAD. appendectomy as child - TONSILS. [facility] BRAIN TUMOR REMOVAL, AUG 21, 2015. BILATERAL CATARACT SURGERY 11/2016. 2 LAMINECTOMYS IN TSP. GAMMA KNIFE RADIATION -09/25/15. 12/14/17- Right ureteral calculus and stent placement Hx Anesthesia Reactions: No Infectious Disease History: No Infectious Disease History: Denies: Traveled Outside the [place] in Last 30 Days - Family History Known Family History: Negative: Cardiac Disease, Hypertension, Diabetes - Social History Alcohol Use: Rare Substance Use Type: Reports: None Smoking Status (MU): Never Smoked Tobacco Review of Systems Positive: Nausea Neurological: Other - dizziness All Other Systems Reviewed And Are Negative: Yes Physical Exam - Summary Physical Exam Summary: Appearance: Well appearing, no pain distress Skin: warm, dry, reflects adequate perfusion Head/face: normal Eyes: EOMI, JOSÉ ENT: normal Neck: supple, non-tender Respiratory: CTA, breath sounds present Cardiovascular: RRR, pulses symmetrical Abdomen: non-tender, soft Bowel: present Musculoskeletal: normal, strength/ROM intact Neuro: dizziness with head position change, sensory motor intact, A&Ox3 Triage Information Reviewed: Yes Vital Signs On Initial Exam: Initial Vitals Temp Pulse Resp BP Pulse Ox 97.7 F 74 18 143/84 99 01/26/18 20:56 01/26/18 20:56 01/26/18 20:56 01/26/18 20:56 01/26/18 20:56 Vital Signs Reviewed: Yes Diagnostics - Vital Signs Vital Signs Temp Pulse Resp BP Pulse Ox 01/26/18 20:56 97.7 F 74 18 143/84 99 - Laboratory Result Diagrams: 01/26/18 22:07 01/26/18 22:07 Lab Statement: Any lab studies that have been ordered have been reviewed, and results considered in the medical decision making process. - Radiology CXR Radiology Interpretation Completed By: ED Physician - no acute disease, pending official report - CT CT Head CT Interpretation Completed By: Radiologist - no definite evidence of acute intracranial hemorrhage, infarction, or mass. ED physician has reviewed this report - EKG 21:04 Cardiac Rate: NL EKG Rhythm: Sinus Rhythm - at 66 BPM EKG Interpretation: no acute changes Dizzy Course/Dx - Course Assessment/Plan: This patient is a 82 year old M presenting to [facility] accompanied by his with a chief complaint of dizziness since 1100 today. The patient rates the pain 0/10 in severity. Symptoms aggravated by movement of his head. Pt took meclizine at 1200 and 1800 but it did not alleviate sx. Pt has a hx of vertigo and states it feels similar to old episodes. Pt has had kidney stone removal surgery recently. He states in the past he has most left sided vertigo and this is where it is worse today. An EKG reveals no acute changes. CXR reveals, no acute disease, pending official report. CT Head reveals, per radiology, no definite evidence of acute intracranial hemorrhage, infarction, or mass. Blood work and UA obtained. Patient will be discharged with prescription for meclizine and follow up from his PCP. The patient is agreeable with this plan. - Diagnoses Differential Diagnosis/HQI/PQRI: Dysrhythmia, Vasovagal Reaction, Other - dizziness Provider Diagnoses: Dizziness, Vertigo Discharge - Sign-Out/Discharge Documenting (check all that apply): Patient Departure - Discharge Plan Condition: Stable Disposition: HOME Prescriptions: Meclizine TAB* [Antivert 12.5 TAB*] 25 mg PO TID PRN #20 tab MDD 3 PRN Reason: Dizziness Patient Education Materials: Vertigo (ED), Dizziness (ED) Referrals: Candy Gandhi MD [Primary Care Provider] - 3 Days Additional Instructions: RETURN TO THE EMERGENCY DEPARTMENT FOR CHANGING OR WORSENING SYMPTOMS - Billing Disposition and Condition Condition: STABLE Disposition: Home
[2018-01-26 22:18] LABS: ABS Basophils 0 10^3/ul (0-0.2); ABS Eosinophils 0 10^3/ul (0-0.6); ABS Lymphocytes 0.5 10^3/ul (1.0-4.8); ABS Monocytes 0.2 10^3/ul (0-0.8); ABS Neutrophils 5.7 10^3/ul (1.5-7.7); ABS Nucleated RBC 0 10^3/ul; Eosinophil % 0.1 % (0-6); Hematocrit 40 % (42-52); Hemoglobin 13.8 g/dl (14.0-18.0); Lymphocyte % 8.3 % (25-47); Mean Corpuscular HGB Conc 34 g/dl (31-36); Mean Corpuscular Hemoglobin 31 pg (27-31); Mean Corpuscular Volume 92 fL (80-94); Mean Platelet Volume 8.8 um3 (7.4-10.4); Nucleated Red Blood Cells % 0.2; Platelet Count 122 10^3/ul (150-450); Red Blood Count 4.38 10^6/ul (4.00-5.40); Red Cell Distribution Width 14 % (10.5-15); White Blood Count 6.4 10^3/ul (3.5-10.8)
[2018-01-26 22:25] LABS: INR 1.02 (0.77-1.02)
[2018-01-26 22:36] LABS: EGFR Non-African American 62.4 (>60)
[2018-01-26 23:13] LABS: Urine Appearance Clear; Urine Blood Negative (Negative); Urine Color Yellow; Urine Ketones Trace (Negative); Urine Protein Negative (Negative); Urine Specific Gravity 1.011 (1.010-1.030); Urine Urobilinogen Negative (Negative)
[2018-01-27 00:10] VITALS: BP 145/82
--- NOTE | 2018-01-27 07:28 | RAD ---
Indication: Dizziness. CT of the brain was performed without IV contrast. Comparison is made with previous exam dated May 20, 2017. Ventricular structures are midline. No midline shift is noted. There is central and cortical atrophy. Right frontal encephalomalacia is noted unchanged from prior exam. Patient is status post right frontal craniotomy. There is no evidence of intracranial mass or hemorrhage. No other high or low density lesions are identified. IMPRESSION: Postop changes with right frontal craniotomy. No intracranial mass or hemorrhage is otherwise identified.
--- NOTE | 2018-01-27 07:48 | RAD ---
INDICATION: Dizziness. COMPARISON: Comparison is made with a prior CT of the chest from May 27, 2016. TECHNIQUE: A portable view of the chest was obtained. FINDINGS: Cardiac and mediastinal contours appear to be within normal limits. The lungs are underinflated. There is elevation of the left hemidiaphragm which is unchanged from the prior exam and suggestion of minimal left basilar subsegmental atelectasis. The lungs are otherwise clear. No pleural effusion is seen. The patient appears to be status post posterior spinal fusion of the visualized portion of the cervical and upper dorsal spine. IMPRESSION: NO EVIDENCE FOR ACUTE DISEASE. R0
== END 2018-01-27 00:10 | disposition home or self-care (01) ==
LOC: ED 20:55
DX: R42 Dizziness and giddiness (principal); Z87.442 Personal history of urinary calculi; Z85.46 Personal history of malignant neoplasm of prostate; Z85.528 Personal history of other malignant neoplasm of kidney; Z85.841 Personal history of malignant neoplasm of brain
CPT/HCPCS: 36415; 70450; 71045; 80053; 81003; 84484; 85025; 85610; 85730; 93005; 99281; A9270-GY

== ENCOUNTER 2018-09-03 23:53 | Emergency (ER) | payer MEDICARE, OTHER ==
[2018-09-03 23:56] VITALS: BP 149/101
--- NOTE | 2018-09-04 00:01 | ED ---
Medical Screening - HPI Summary HPI Summary: 82-year-old male presents for IV removal today. he had an MRI today and they left the IV in. He denies any complaints at this time. - History of Current Complaint Chief Complaint: EDGeneral Stated Complaint: NEED IV TAKEN OUT PER PT Time Seen by Provider: 09/04/18 00:00 PMH/Surg Hx/FS Hx/Imm Hx Endocrine/Hematology History: Reports: Hx Thyroid Disease - hypothyroididm` Denies: Hx Diabetes Cardiovascular History: Denies: Hx Congestive Heart Failure, Hx Hypertension, Hx Pacemaker/ICD, Other Cardiovascular Problems/Disorders Respiratory History: Reports: Other Respiratory Problems/Disorders - metastisis to right lung, wedge resection GI History: Denies: Other GI Disorders History: Reports: Hx Kidney Stones - RIGHT., Hx Renal Disease, Other Problems/Disorders - Right ureteral stent, stone 12/14/17, Prostate cancer- radiation & lupron Denies: Hx Dialysis Musculoskeletal History: Reports: Hx Arthritis, Other Musculoskeletal History - Cancer in spine- 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 KIDNEY (PRIMARY). METS TO BRAIN - CRANIOTOMY - 08/21/15 AND GAMMA KNIFE 09/25/15 Hx Chemotherapy: Yes - lupron, immunotherapy Hx Radiation Therapy: Yes - Surgical History Surgery Procedure, Year, and Place: Lt [email or web address] [email or web address]- AND Rt PARTIAL NEPHRECTOMY. LUNG SURGERY AND SPINAL SURGERY W/ RODS IN [facility]-. KERATOSIS REMOVED FROM FOREHEAD. appendectomy as child - TONSILS. [facility] [place] BRAIN TUMOR REMOVAL, AUG 21, 2015. BILATERAL CATARACT SURGERY 11/2016. 2 LAMINECTOMYS IN TSP. GAMMA KNIFE RADIATION -09/25/15. 12/14/17- Right ureteral calculus and stent placement-REMOVED Hx Anesthesia Reactions: No Infectious Disease History: No Infectious Disease History: Denies: Traveled Outside the [place] in Last 30 Days - Family History Known Family History: Negative: Cardiac Disease, Hypertension, Diabetes - Social History Alcohol Use: Rare Substance Use Type: Reports: None Smoking Status (MU): Never Smoked Tobacco Review of Systems Negative: Fever Negative: Chest Pain Negative: Shortness Of Breath Positive: Other - iv in arm All Other Systems Reviewed And Are Negative: Yes Physical Exam Triage Information Reviewed: Yes Vital Signs On Initial Exam: Initial Vitals Temp Pulse Resp BP Pulse Ox 96.3 F 77 18 149/101 98 09/03/18 23:55 09/03/18 23:55 09/03/18 23:55 09/03/18 23:55 09/03/18 23:55 Vital Signs Reviewed: Yes Appearance: Positive: Well-Appearing Skin: Positive: Warm, Dry Head/Face: Positive: Normal Head/Face Inspection Eyes: Positive: Normal, Conjunctiva Clear ENT: Positive: Pharynx normal Respiratory/Lung Sounds: Positive: Clear to Auscultation, Breath Sounds Present Cardiovascular: Positive: Normal, RRR Musculoskeletal: Positive: Normal Neurological: Positive: Normal Psychiatric: Positive: Normal Diagnostics - Vital Signs Vital Signs Temp Pulse Resp BP Pulse Ox 09/03/18 23:55 96.3 F 77 18 149/101 98 - Laboratory Lab Statement: Any lab studies that have been ordered have been reviewed, and results considered in the medical decision making process. Course/Dx - Course Course Of Treatment: 82-year-old male presents for IV removal today. he had an MRI today and they left the IV in. He denies any complaints at this time. IV was removed by the nurse. normal physical exam. - Diagnoses Provider Diagnoses: Encounter for medical screening examination Discharge - Sign-Out/Discharge Documenting (check all that apply): Patient Departure Patient Received Moderate/Deep Sedation with Procedure: No - Discharge Plan Condition: Good Disposition: HOME Referrals: Candy Gandhi MD [Primary Care Provider] - Additional Instructions: return to ED if develop any new or worsening symptoms - Billing Disposition and Condition Condition: GOOD Disposition: Home
== END 2018-09-04 00:09 | disposition home or self-care (01) ==
LOC: ED 23:53
DX: Z00.00 Encounter for general adult medical examination without abnormal findings (principal); Z85.46 Personal history of malignant neoplasm of prostate; Z85.528 Personal history of other malignant neoplasm of kidney; Z86.79 Personal history of other diseases of the circulatory system
CPT/HCPCS: 99281

== ENCOUNTER 2023-01-28 10:21 | Observation (INO) ==
[2023-01-28 12:09] LABS: ABS Eosinophils 0.1 10^3/uL (0.0-0.5); ABS Lymphocytes 1.2 10^3/uL (1.0-4.8); ABS Monocytes 0.4 10^3/uL (0.0-1.1); ABS Neutrophils 7.6 10^3/uL (1.5-7.6); Hemoglobin 12.8 g/dL (13.2-16.3); Lymphocyte % 12.5 %; Mean Corpuscular Hemoglobin 31.6 pg (27-33); Mean Corpuscular Hgb Conc 33.6 g/dL (31-36); Platelet Count 140 10^3/uL (150-450); Red Blood Count 4.04 10^6/uL (4.06-5.63); Red Cell Distribution Width 15.1 % (12-17); White Blood Count 9.2 10^3/uL (3.6-10.2)
[2023-01-28 12:21] LABS: INR 0.97 (0.88-1.18)
[2023-01-28 12:23] LABS: ALT 6 U/L (7-52); Alkaline Phosphatase 28 U/L (35-149); Blood Urea Nitrogen 16 mg/dL (6-24); Creatinine, Serum 0.97 mg/dL (0.67-1.17); Glucose 99 mg/dL (70-100); Total Protein 6.3 g/dL (6.4-8.9); eGFR CKD-EPI 76.5 (>60)
[2023-01-28] MEDS ORDERED: NS 0.9% 1000 ml BAG 1,000 ML IV ONE (12:26)
[2023-01-28] MEDS ORDERED: Iodixanol (CONTRAST) 320 MG/ML 100 ML SDV IV ONE (12:27)
[2023-01-28 12:39] LABS: TSH Ultra Thyroid Stim Horm 3.46 mcIU/mL (0.34-5.60)
[2023-01-28 12:42] LABS: Albumin 3.8 g/dL (3.2-5.2); Albumin/Globulin Ratio 1.5 (1-3); Globulin 2.5 g/dL (2-4)
[2023-01-28 12:50] LABS: High Sens Troponin Baseline 5 pg/mL (<20)
[2023-01-28 12:51] LABS: Anion Gap 9 mmol/L (2-16); CO2 Carbon Dioxide 20 mmol/L (22-32); Calcium 7.6 mg/dL (8.6-10.3); Chloride 111 mmol/L (101-111); Sodium 140 mmol/L (135-145)
[2023-01-28 13:49] LABS: Potassium Redraw 3.8 mmol/L (3.5-5.0)
[2023-01-28 13:58] LABS: Urine Appearance Turbid; Urine Bilirubin Negative (Negative); Urine Blood 2+ (Negative); Urine Color Yellow; Urine Glucose Negative (Negative); Urine Ketones Negative (Negative); Urine Nitrite Positive (Negative); Urine Protein 2+(100 mg/dL) (Negative); Urine Specific Gravity 1.009 (1.002-1.030); Urine Urobilinogen Negative (Negative)
[2023-01-28 14:08] LABS: Urine Bacteria Absent (Absent); Urine Red Blood Cell 3+(>10/hpf) (Absent); Urine White Blood Cell 3+(>20/hpf) (Absent)
[2023-01-28] MEDS: Heparin 5000 UNITS/ML 1 mL VIAL SUBCUT SCH (20:54)
[2023-01-29] MEDS: Heparin 5000 UNITS/ML 1 mL VIAL SUBCUT SCH ×3 (05:40→21:56)
[2023-01-29] MEDS ORDERED: ABIRATERONE 500 MG PO SCH (09:00)
[2023-01-29] MEDS ORDERED: PTO: Abiraterone 250 mg TAB (NF) PO SCH (11:00)
[2023-01-29] MEDS: cefTRIAXone 1 gm/50 mL D5W 1 GM/50 ML BAG IV SCH (12:44)
[2023-01-29] MEDS: Calcium/Vitamin D TAB 250/125 TAB PO SCH ×2 (12:44→21:56)
[2023-01-30] MEDS: Heparin 5000 UNITS/ML 1 mL VIAL SUBCUT SCH ×2 (05:32→14:32)
[2023-01-30] MEDS ORDERED: PTO: Abiraterone 250 mg TAB (NF) PO SCH (06:00)
[2023-01-30 06:09] LABS: ABS Eosinophils 0.1 10^3/uL (0.0-0.5); ABS Lymphocytes 1.5 10^3/uL (1.0-4.8); ABS Monocytes 0.3 10^3/uL (0.0-1.1); ABS Neutrophils 3.6 10^3/uL (1.5-7.6); Eosinophil % 1.5 %; Hematocrit 36.2 % (38-53); Hemoglobin 12.4 g/dL (13.2-16.3); Lymphocyte % 26.8 %; Mean Corpuscular Hemoglobin 31.6 pg (27-33); Mean Corpuscular Hgb Conc 34.3 g/dL (31-36); Mean Corpuscular Volume 92.4 fL (80-97); Mean Platelet Volume 8.4 fL (7.5-11.2); Nucleated Red Blood Cells % 0.1 /100 WBC (0.0-0.4); Platelet Count 132 10^3/uL (150-450); Red Blood Count 3.91 10^6/uL (4.06-5.63); Red Cell Distribution Width 14.8 % (12-17); White Blood Count 5.5 10^3/uL (3.6-10.2)
[2023-01-30 06:25] LABS: Albumin 3.5 g/dL (3.2-5.2); Albumin/Globulin Ratio 1.6 (1-3); C Reactive Protein 9.27 mg/L (<8.01); Calcium 8.8 mg/dL (8.6-10.3); Creatinine, Serum 1.11 mg/dL (0.67-1.17); Globulin 2.2 g/dL (2-4); Magnesium 1.8 mg/dL (1.9-2.7); Potassium 3.9 mmol/L (3.5-5.0); Total Bilirubin 0.5 mg/dL (0.2-1.0); Total Protein 5.7 g/dL (6.4-8.9); eGFR CKD-EPI 65.1 (>60)
[2023-01-30] MEDS: Calcium/Vitamin D TAB 250/125 TAB PO SCH (09:39)
[2023-01-30] MEDS: cefTRIAXone 1 gm/50 mL D5W 1 GM/50 ML BAG IV SCH ×2 (10:56→11:47)
[2023-01-30 11:12] LABS: Urine Appearance Turbid; Urine Bilirubin Negative (Negative); Urine Blood 2+ (Negative); Urine Color Yellow; Urine Glucose Negative (Negative); Urine Ketones Negative (Negative); Urine Nitrite Positive (Negative); Urine Protein 1+(30 mg/dL) (Negative); Urine Specific Gravity 1.014 (1.002-1.030); Urine Urobilinogen Negative (Negative)
[2023-01-30 11:22] LABS: Urine Bacteria 1+ (Absent); Urine Red Blood Cell 3+(>10/hpf) (Absent); Urine White Blood Cell 3+(>20/hpf) (Absent)
[2023-01-30] MEDS ORDERED: Cefepime 1 GM in Dextrose 1 GM/50 ML BAG IV SCH (13:00)
[2023-01-30] MEDS ORDERED: CEFEPIME 2 GM in Dextrose 50 mL IV SCH (13:30)
[2023-01-30] MEDS ORDERED: Cefepime 2 GM in Dextrose 2 GM/50 ML BAG IV SCH (14:00)
[2023-01-30 14:57] VITALS: BP 113/67
== END 2023-01-30 16:05 | disposition home or self-care (01) ==
LOC: ED 10:21 → EDHOLD 10:21 → SUATTDRO 16:02 → EDHOLD 18:25 → MEDTELE 19:32
PROVIDERS: ADMIT Internal Medicine; ATTEND Internal Medicine

== ENCOUNTER 2024-03-26 12:12 | Observation (INO) ==
[2024-03-26 13:44] LABS: ABS Lymphocytes 0.8 10^3/uL (1.0-4.8); ABS Monocytes 0.4 10^3/uL (0.0-1.1); ABS Neutrophils 4.9 10^3/uL (1.5-7.6); Eosinophil % 0.4 %; Hematocrit 28.2 % (38-53); Hemoglobin 9.3 g/dL (13.2-16.3); Lymphocyte % 13.1 %; Mean Corpuscular Hemoglobin 32.1 pg (27-33); Mean Corpuscular Hgb Conc 32.9 g/dL (31-36); Mean Corpuscular Volume 97.7 fL (80-97); Platelet Count 124 10^3/uL (150-450); Red Blood Count 2.88 10^6/uL (4.06-5.63); White Blood Count 6.2 10^3/uL (3.6-10.2)
[2024-03-26 14:26] LABS: Albumin 3.3 g/dL (3.2-5.2); Albumin/Globulin Ratio 1.7 (1-3); Calcium 8.4 mg/dL (8.6-10.3); Creatinine, Serum 1.07 mg/dL (0.67-1.17); Globulin 1.9 g/dL (2-4); Total Bilirubin 0.6 mg/dL (0.2-1.0); Total Protein 5.2 g/dL (6.4-8.9); eGFR CKD-EPI 67.6 (>60)
[2024-03-26] MEDS ORDERED: Ondansetron 4 mg VIAL 2 MG/ML 2 ml VIAL IV PRN (14:49)
[2024-03-26 20:20] LABS: ABS Lymphocytes 0.8 10^3/uL (1.0-4.8); ABS Monocytes 0.3 10^3/uL (0.0-1.1); ABS Neutrophils 4.2 10^3/uL (1.5-7.6); Eosinophil % 0.6 %; Hematocrit 27.7 % (38-53); Hemoglobin 9.1 g/dL (13.2-16.3); Lymphocyte % 15.5 %; Mean Corpuscular Hemoglobin 32.1 pg (27-33); Mean Corpuscular Volume 97.5 fL (80-97); Mean Platelet Volume 7.9 fL (7.5-11.2); Platelet Count 122 10^3/uL (150-450); Red Blood Count 2.84 10^6/uL (4.06-5.63); Red Cell Distribution Width 15.1 % (12-17); White Blood Count 5.4 10^3/uL (3.6-10.2)
[2024-03-27 06:06] LABS: ABS Lymphocytes 1.3 10^3/uL (1.0-4.8); ABS Monocytes 0.4 10^3/uL (0.0-1.1); ABS Neutrophils 4.5 10^3/uL (1.5-7.6); ABS Nucleated RBC 0.01 10^3/ul; Eosinophil % 0.7 %; Hematocrit 24.9 % (38-53); Hemoglobin 8.5 g/dL (13.2-16.3); Lymphocyte % 20.4 %; Mean Corpuscular Hemoglobin 33.2 pg (27-33); Mean Corpuscular Hgb Conc 34.2 g/dL (31-36); Mean Corpuscular Volume 96.9 fL (80-97); Mean Platelet Volume 8.3 fL (7.5-11.2); Nucleated Red Blood Cells % 0.1 %/100WBC (0.0-0.8); Platelet Count 124 10^3/uL (150-450); Red Blood Count 2.57 10^6/uL (4.06-5.63); Red Cell Distribution Width 15.1 % (12-17); White Blood Count 6.2 10^3/uL (3.6-10.2)
[2024-03-27 06:27] LABS: Calcium 8.2 mg/dL (8.6-10.3); Creatinine, Serum 0.93 mg/dL (0.67-1.17); Magnesium 1.8 mg/dL (1.9-2.7); Potassium 3.7 mmol/L (3.5-5.0)
[2024-03-27] MEDS ORDERED: Lidocaine 2% PF 5 ML VIAL ONE (08:08)
[2024-03-27] MEDS ORDERED: fentaNYL 100 mcg/2 ml 50 MCG/ML VIAL ONE (08:08)
[2024-03-27] MEDS ORDERED: Iohexol 180 (CONTRAST) 10 ML SDV IV ONE (08:24)
[2024-03-27] MEDS ORDERED: Metoclopramide 5 MG/ML VIAL (10 mg) IV PRN (08:34)
[2024-03-27] MEDS ORDERED: fentaNYL 100 mcg/2 ml 50 MCG/ML VIAL IV PRN (08:34)
[2024-03-27] MEDS ORDERED: Naloxone 0.4 mg VIAL 0.4 mg/ml 1 ml VIAL IV PRN (08:34)
[2024-03-27] MEDS ORDERED: Ondansetron 4 mg VIAL 2 MG/ML 2 ml VIAL IV PRN (08:34)
[2024-03-27] MEDS ORDERED: Ondansetron 4 mg VIAL 2 MG/ML 2 ml VIAL ONE (08:58)
[2024-03-27] MEDS ORDERED: NS 0.45% 1000 ml BAG 1,000 ML IV SCH (09:00)
[2024-03-27] MEDS ORDERED: Succinylcholine 200 mg VIAL 20 mg/ml 10 ml VIAL (200 mg) ONE (09:23)
[2024-03-27] MEDS ORDERED: Dexamethasone IV 4 MG/ML VIAL 1 ml VIAL ONE (09:45)
[2024-03-27] MEDS ORDERED: Rocuronium 50 mg VIAL 10 mg/ml 5 ml VIAL (50 mg) ONE (09:55)
[2024-03-27] MEDS ORDERED: Midazolam 2 mg/2 ml VIAL 1 mg/ml 2 ml VIAL (2 mg) ONE (09:56)
[2024-03-27] MEDS ORDERED: Phenylephrine IV 10 MG/ML 1 ml VIAL ONE (09:58)
[2024-03-27] MEDS ORDERED: Acetaminophen IV 1 GM/100ML 1,000 MG/100 ML BAG IV ONE (10:06)
[2024-03-27] MEDS ORDERED: Artificial Tear OPHTH.OINT 3.5 GM ONE (10:19)
[2024-03-27 11:22] LABS: Hematocrit 23.2 % (38-53); Hemoglobin 7.7 g/dL (13.2-16.3)
[2024-03-27] MEDS ORDERED: Lidocaine 2% JELLY 6 ML Topical TOPICAL ONE (11:23)
[2024-03-27] MEDS: Acetaminophen IV 1 GM/100ML 1,000 MG/100 ML BAG IV ONE (14:22)
[2024-03-27] MEDS: Lactated Ringers 1000 ml BAG 1,000 ML IV SCH (14:22)
[2024-03-27] MEDS: Buffered Lidocaine 1% SYRIN 1 ml INTRADERM ONE (14:22)
[2024-03-27] MEDS: cefTRIAXone 1 gm/50 mL D5W 1 GM/50 ML BAG IV ONE (14:23)
[2024-03-27] MEDS: Iron Sucrose 200 MG in NS 0.9% 100 ml BAG 100 ML IVPB SCH (15:17)
[2024-03-27] MEDS: ABIRATERONE 500 MG PO SCH (15:41)
[2024-03-27] MEDS ORDERED: Polyethylene Glycol 3350 17 GM PACKET PO PRN (15:49)
[2024-03-27] MEDS: Psyllium PAK PO SCH (17:10)
[2024-03-27] MEDS: NS 0.9% 1000 ml BAG 1,000 ML IV SCH (17:53)
[2024-03-27] MEDS: Lactated Ringers 1000 ml BAG 1,000 ML IV ONE (17:53)
[2024-03-27] MEDS: Lidocaine 2% JELLY 6 ML Topical TOPICAL PRN (17:58)
[2024-03-27 21:00] LABS: Hematocrit 25.5 % (38-53); Hemoglobin 8.8 g/dL (13.2-16.3)
[2024-03-28 05:36] LABS: ABS Lymphocytes 0.8 10^3/uL (1.0-4.8); ABS Monocytes 0.3 10^3/uL (0.0-1.1); ABS Neutrophils 6.1 10^3/uL (1.5-7.6); Hematocrit 25.1 % (38-53); Hemoglobin 8.4 g/dL (13.2-16.3); Mean Corpuscular Hemoglobin 31.4 pg (27-33); Mean Corpuscular Hgb Conc 33.5 g/dL (31-36); Mean Corpuscular Volume 93.7 fL (80-97); Mean Platelet Volume 8.2 fL (7.5-11.2); Platelet Count 103 10^3/uL (150-450); Red Blood Count 2.67 10^6/uL (4.06-5.63); Red Cell Distribution Width 17.7 % (12-17); White Blood Count 7.2 10^3/uL (3.6-10.2)
[2024-03-28 06:05] LABS: Calcium 7.3 mg/dL (8.6-10.3); Creatinine, Serum 1.03 mg/dL (0.67-1.17); Magnesium 1.5 mg/dL (1.9-2.7); Potassium 4.1 mmol/L (3.5-5.0); eGFR CKD-EPI 70.7 (>60)
[2024-03-28] MEDS: cefTRIAXone 1 gm/50 mL D5W 1 GM/50 ML BAG IV ONE (08:55)
[2024-03-28] MEDS: Magnesium Sulfate 2 gm BAG 2 GM/50 ML BAG IVPB ONE (09:47)
[2024-03-28] MEDS: Magnesium Sulfate IV 1GM/100ML 1 GM/100 ML BAG IV ONE (12:28)
[2024-03-28] MEDS: Lactated Ringers 1000 ml BAG 1,000 ML IV ONE (12:28)
[2024-03-28 17:34] VITALS: BP 94/54
== END 2024-03-28 20:30 | disposition home or self-care (01) ==
LOC: ED 12:12 → EDHOLD 12:12 → SUATTDRO 14:49 → SSU 14:49
PROVIDERS: ADMIT Student in an Organized Health Care Education/Training Program; ATTEND Hospitalist